=== PATIENT | female | born 1995 | race Native Hawaiian/Other Pacific Islander ===

== ENCOUNTER 2020-12-18 11:40 | Emergency (ER) | payer SELFPAY ==
[2020-12-18] MEDS ORDERED: ASPIRIN 325 MG TAB PO ONE (12:23)
[2020-12-18] MEDS ORDERED: ACETAMINOPHEN 500 MG TAB PO ONE (12:24)
--- NOTE | 2020-12-18 12:25 | Emergency Department Report ---
ED Chest Pain HPI - General Chief Complaint: Chest Pain Stated Complaint: CHEST PAIN Time Seen by Provider: 12/18/20 12:06 Source: patient Mode of arrival: Ambulatory Limitations: No Limitations - History of Present Illness Initial Comments: 25-year-old female with a history of tobacco use but no other significant past medical history presents to the ER today with complaints of substernal chest pain. Patient states that symptoms started 2 days ago. She states that initially was intermittent but since last night around 8 p.m. it has been constant. She states that the pain radiates into her back. She states that the pain is sometimes tight, sometimes it feels like it is pressure, sometimes it feels like a burning tingling sensation. She states that the pain seems to get more intense when she lifts both her arms up above her head and when she lays on either her left or her right side or sometimes when she is very active. She denies any associated cough, shortness of breath, wheezing, nausea, vomiting, abdominal pain, calf pain or lower extremity swelling. He admits that she smokes marijuana but denies any other illicit drug use. She denies any family history of heart disease. MD Complaint: chest pain -: Gradual, days(s) (2) - Related Data Previous Rx's Medication Instructions Recorded Last Taken Type Famotidine [Pepcid] 40 mg PO QHS #30 tablet 12/18/20 Unknown Rx Allergies Allergy/AdvReac Type Severity Reaction Status Date / Time No Known Allergies Allergy Unverified 12/18/20 12:03 Heart Score - HEART Score History: Slightly suspicious EKG: Normal Age: < 45 Risk factors: 1-2 risk factors Troponin: < normal limit HEART Score: 1 - EKG Read Time Time EKG Completed: 11:47 EKG Read Time: 11:50 ED Review of Systems ROS: Stated complaint: CHEST PAIN Other details as noted in HPI Comment: All other systems reviewed and negative Constitutional: denies: chills, fever Eyes: denies: eye pain, eye discharge, vision change ENT: denies: ear pain, throat pain Respiratory: denies: cough, shortness of breath, SOB with exertion, SOB at rest, stridor, wheezing, other Cardiovascular: chest pain Gastrointestinal: denies: abdominal pain, nausea, vomiting, diarrhea, constipation, hematemesis, hematochezia Genitourinary: denies: urgency, dysuria, frequency, hematuria, discharge, abnormal menses, dyspareunia Musculoskeletal: denies: back pain Skin: denies: rash, lesions, change in color, change in hair/nails, pruritus Neurological: denies: headache, weakness, paresthesias, confusion, abnormal gait, vertigo Psychiatric: denies: anxiety, depression, auditory hallucinations, visual hallucinations, homicidal thoughts, suicidal thoughts Hematological/Lymphatic: denies: easy bleeding, easy bruising ED Past Medical Hx - Past Medical History Previous Medical History?: No - Social History Smoking Status: Current Every Day Smoker - Medications Home Medications: Home Medications Medication Instructions Recorded Confirmed Last Taken Type Famotidine [Pepcid] 40 mg PO QHS #30 tablet 12/18/20 Unknown Rx ED Physical Exam - General Limitations: No Limitations General appearance: alert, in no apparent distress - Head Head exam: Present: atraumatic, normocephalic, normal inspection - Eye Eye exam: Present: normal appearance, PERRL, EOMI Pupils: Present: normal accommodation - ENT ENT exam: Present: normal exam, mucous membranes moist - Neck Neck exam: Present: normal inspection, full ROM - Respiratory Respiratory exam: Present: normal lung sounds bilaterally. Absent: respiratory distress - Cardiovascular Cardiovascular Exam: Present: regular rate, normal rhythm, normal heart sounds - GI/Abdominal GI/Abdominal exam: Present: soft. Absent: distended, tenderness, guarding, rebound - Extremities Exam Extremities exam: Present: normal inspection, full ROM. Absent: tenderness, pe tara edema, calf tenderness - Neurological Exam Neurological exam: Present: alert, oriented X3, CN II-XII intact, normal gait - Psychiatric Psychiatric exam: Present: normal affect, normal mood - Skin Skin exam: Present: intact ED Course Vital Signs 12/18/20 12/18/20 12:00 12:07 Temperature 98.0 F Pulse Rate 89 64 Respiratory 18 16 Rate Blood Pressure 109/71 O2 Sat by Pulse 98 Oximetry GURU score - Guru Score Age > 65: (0) No Aspirin use within the Past 7 Days: (0) No 3 or more CAD Risk Factors: (0) No 2 or more Angina events in past 24 hrs: (0) No Known CAD with more than 50% Stenosis: (0) No Elevated Cardiac Markers: (0) No ST Deviation Greater than 0.5mm: (0) No GURU Score: 0 ED Medical Decision Making - Lab Data Result diagrams: 12/18/20 13:04 12/18/20 12:58 - EKG Data EKG shows normal: sinus rhythm Rate: normal (64) - EKG Data Interpretation: normal EKG 12/18/20 15:36 Repeat EKG shows normal sinus rhythm with a heart rate of 63. No STEMI, or acute ischemic changes or significant dysrhythmias noted. No change compared to prior EKG. - Radiology Data Radiology results: report reviewed Patient: WILFREDO CANSECO MR#: [id number] : 1995 Acct:[id number] Age/Sex: 25 / F ADM Date: 12/18/20 Loc: ED Attending Dr: Ordering Physician: SB RUSH Date of Service: 12/18/20 Procedure(s): XR chest routine 2V Accession Number(s): [id number] cc: SB RUSH Fluoro Time In Minutes: CHEST 2 VIEWS INDICATION / CLINICAL INFORMATION: Chest Pain. COMPARISON: None available. FINDINGS: SUPPORT DEVICES: None. HEART / MEDIASTINUM: No significant abnormality. LUNGS / PLEURA: No significant pulmonary or pleural abnormality. No pneumothorax. ADDITIONAL FINDINGS: No significant additional findings. IMPRESSION: 1. No acute findings. Signer Name: Rizwan Zheng MD Signed: 12/18/2020 2:27 PM Workstation Name: [id number] Transcribed By: Dictated By: Rizwan Zheng MD Electronically Authenticated By: Rizwan Zheng MD Signed Date/Time: 12/18/201426 DD/ 26 TD/TT: - Medical Decision Making Labs reviewed--CBC unremarkable. CMP shows mild hyperglycemia with a glucose of 121 but otherwise unremarkable. She has had 2 - troponins and EKG showed normal sinus rhythm without any signs of STEMI or acute ischemic changes or significant dysrhythmias. Chest x-ray shows nothing acute. The patient is currently resting comfortably and , is alert and in no distress. Her history, exam, diagnostic testing and current condition do not suggest that this patient is having acute myocardial infarction, significant arrhythmia, unstable angina (HEART score 1), esophageal perforation, pulmonary embolism (PERC score0), aortic dissection, pneumothorax, severe pneumonia, sepsis or other significant pathology that would warrant further testing, continued ED treatment, admission or cardiology or other specialist consultation at this time. Her vital signs have been stable. Symptoms could be related to indigestion/esophagitis/GERD. Discussed lab and imaging results with patient. Discussed suspected diagnosis and treatment plan with patient. I also still recommend that she follows with primary care doctor and/or contact center consultant if her symptoms persist. But she understands that if her symptoms worsens to return to the ER. Patient expressed understanding of instructions and agree with plan. Patient stable at time of discharge. Critical care attestation.: If time is entered above; I have spent that time in minutes in the direct care of this critically ill patient, excluding procedure time. ED Disposition Clinical Impression: Atypical chest pain Disposition: DC- TO HOME OR SELFCARE Is pt being admited?: No Does the pt Need Aspirin: No Condition: Stable Instructions: Nonspecific Chest Pain, Adult, [id number] Additional Instructions: I recommend taking tylenol or motrin for pain. I also recommend taking pepcid or zantac from over the counter just in case CP could related to indigestion. I recommend close follow up with PCP and or contact center consultant listed on discharge instructions especially if your symptoms continue. Return to the ER if your symptoms worsens or changes in any way. Prescriptions: Famotidine [Pepcid] 40 mg PO QHS #30 tablet Referrals: DARLING MONTAÑO MD [Staff Physician] - 3-5 Days DEAN DEL CID MD [Staff Physician] - 3-5 Days Forms: Work/School Release Form(ED) Time of Disposition: 16:13
[2020-12-18 13:35] LABS: Basophils % (Auto) 0.7 % (0.0-1.8); Eosinophils # (Auto) 0.1 K/mm3 (0.0-0.4); Eosinophils % (Auto) 1.6 % (0.0-4.3); Hematocrit 45.1 % (30.3-42.9); Hemoglobin 15.3 gm/dl (10.1-14.3); Lymphocytes # (Auto) 1.7 K/mm3 (1.2-5.4); Lymphocytes % (Auto) 23.4 % (13.4-35.0); Mean Corpuscular HGB Conc 34 % (30-34); Mean Corpuscular Volume 95 fl (79-97); Monocytes # (Auto) 0.4 K/mm3 (0.0-0.8); Monocytes % (Auto) 5.6 % (0.0-7.3); Red Blood Count 4.76 M/mm3 (3.65-5.03); Red Cell Distribution Width 12.9 % (13.2-15.2)
--- NOTE | 2020-12-18 13:40 | Electrocardiograph Report ---
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
[2020-12-18 14:09] LABS: Alanine Aminotransferase 10 units/L (7-56); Albumin 4.5 g/dL (3.9-5); Blood Urea Nitrogen 9 mg/dL (7-17); Calcium 8.9 mg/dL (8.4-10.2); Hemolysis Index 22
[2020-12-18 14:31] LABS: BUN/Creatinine Ratio 18
--- NOTE | 2020-12-18 14:32 | XRay Report ---
CHEST 2 VIEWS INDICATION / CLINICAL INFORMATION: Chest Pain. COMPARISON: None available. FINDINGS: SUPPORT DEVICES: None. HEART / MEDIASTINUM: No significant abnormality. LUNGS / PLEURA: No significant pulmonary or pleural abnormality. No pneumothorax. ADDITIONAL FINDINGS: No significant additional findings. IMPRESSION: 1. No acute findings. Signer Name: Rizwan Zheng MD Signed: 12/18/2020 2:27 PM Workstation Name: [id number]
[2020-12-18 15:00] LABS: Platelet Count 110 K/mm3 (140-440)
[2020-12-18 16:17] VITALS: BP 128/73
--- NOTE | 2020-12-21 21:29 | Electrocardiograph Report ---
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
== END 2020-12-18 16:15 | disposition home or self-care (01) ==
LOC: ED 11:40
DX: R07.89 Other chest pain (principal); F17.200 Nicotine dependence, unspecified, uncomplicated; Z79.899 Other long term (current) drug therapy
CPT/HCPCS: 36415; 71046; 80053; 83690; 84484; 84703; 85025; 93005